=== PATIENT | female | born 1975 | race African-American/Black ===

== ENCOUNTER 2017-05-12 11:56 | Emergency (ER) | payer MEDICAID ==
[~2017-05-12] VITALS: Ht 157.5 cm; Wt 108.0 kg
[2017-05-12] MEDS ORDERED: ONDANSETRON HCL 4MG/2ML VIAL IV STA (12:41)
[2017-05-12] MEDS ORDERED: SODIUM CHLORIDE 0.9% 1,000 ML IV ONE (12:41)
[2017-05-12] MEDS ORDERED: FAMOTIDINE 20MG/2ML VIAL IV ONE (12:45)
[2017-05-12] MEDS ORDERED: TRAMADOL 50MG TABLET PO ONE (13:00)
[2017-05-12 13:08] VITALS: BP 129/79
[2017-05-12 13:08] LABS: BASOPHILS % 1.2 % (0.0-2.0); EOSINOPHILS % 2.8 % (0.0-5.0); HEMATOCRIT. 40.4 % (36.0-48.0); HEMOGLOBIN. 13.8 g/dL (12.0-16.0); LYMPHOCYTES % 46.1 % (20.0-50.0); MEAN CORPUSCULAR HEMOGLOBIN 28.5 pg (28.0-32.0); MEAN CORPUSCULAR VOLUME 83.5 fL (81.0-99.0); MEAN PLATELET VOLUME 8.4 fl (7.4-10.4); MONOCYTES % 3.4 % (2.0-8.0); NEUTROPHILS % 46.5 % (40.0-76.0); PLATELET 244 x1000/uL (130-400); RED BLOOD CELL COUNT 4.84 mill/uL (4.2-5.4); RED CELL DISTRIBUTION WIDTH 15.6 % (11.6-14.6)
[2017-05-12 13:13] LABS: CHLORIDE 106 mEq/L (98-107)
[2017-05-12 13:20] LABS: CARBON DIOXIDE 28 mEq/L (21-32)
[2017-05-12 13:39] LABS: HCG SCREEN NEGATIVE
[2017-05-12] MEDS ORDERED: ONDANSETRON HCL 4MG/2ML VIAL IV ONE (14:00)
== END 2017-05-12 16:13 | disposition home or self-care (01) ==
LOC: ER 13:01
DX: R10.84 Generalized abdominal pain (principal); R19.7 Diarrhea, unspecified; R11.2 Nausea with vomiting, unspecified; I10 Essential (primary) hypertension; Z88.6 Allergy status to analgesic agent
CPT/HCPCS: 36415; 71010; 80053; 83690; 84703; 85025; 96361; 96374; 96375; 96376; 99285; J2405; J3490; J7030; Z7610